=== PATIENT | female | born 1995 | race African-American/Black ===

== ENCOUNTER 2022-06-01 12:45 | Inpatient (IN) ==
[2022-06-01] MEDS ORDERED: OXYTOCIN 30 UNITS/500 ML BAG IV PRN ×2 (13:32→13:51)
[2022-06-01] MEDS ORDERED: LIDOCAINE 1% LOCAL 20 ML VIAL INFIL PRN (13:32)
[2022-06-01 14:16] LABS: Creatinine Urine Random 133.5 mg/dl; Protein Creatinine Ratio Urine 0.1 (0-0.2); Total Protein Urine Random 13.4 mg/dl (0-11.9)
--- NOTE | 2022-06-01 14:18 | History & Physical Report ---
Date of Service June 01, 2022 Assessment & Plan (1) Encounter for induction of labor: Plan: IUP at 40+ weeks for IOL because of post term cervical balloon placed successfully pitocin augmentation has been started epidural analgesia if or when requested anticipate vaginal Admission and Anticipated Discharge Date Admission Date: June 01, 2022 History of Present Illness Chief Complaint: induction of labor Primary Care Provider: GREG PCP at 40 weeks and 2 days confirmed via LMP. Here for induction of labor. Complications with this include rubella non-immune. Has been attending OB appointments regularly. Currently taking no medications. Contractions: none. Fluid or Blood loss: none Movement: active Labs - Blood type: O+ - Antibody screen: negative - H.5 - Hct: 34.1 - Plt: 309 - Rubella: equivocal - VDRL/RPR: nonreactive - Gonorrhea: negative - Chlamydia: negative - HIV: negative - HbSAg: negative - GBS: negative - Glucose tolerance x 2 Allergies Allergy/AdvReac Type Severity Reaction Status Date / Time No Known Allergies Allergy Verified 05/30/22 09:03 Home Medications Medication Instructions Recorded Confirmed Type prenat.vits,oliverio,xyy-sdjp-ryhcy 1 tab PO DAILY 11/01/21 06/01/22 History lactobacillus combination no.4 3 3,000 mmu cells PO DAILY 06/01/22 06/01/22 History billion cell capsule (Probiotic) omega-3 fatty acids-fish oil 684 1 cap PO DAILY 06/01/22 06/01/22 History mg-1,200 mg capsule,delayed release Patient History Medical History Asthma History of chicken pox Surgical History No history of previous surgery Family History Grandmother (Maternal) Diabetes Brother Asthma Denies family history of Ovarian cancer Breast cancer Colorectal cancer Social History (Updated 06/01/22 @ 12:57 by Jeni Burris RN) Smoking Status: Never smoker Hx Alcohol Use: No Hx Substance Use: No Preferred Language: Malay Communication Ability: Effective Hearing Ability: Normal Dental Director Required: No Beliefs That Will Affect Care: None marital status: Single marital status details: fob Dk Alarcon (38) [phone] Current Living Situation: Significant Other Current Living Situation Comment: Lives with FOB current occupational status: employed current occupation: [employer] Other Information That Helps Us Care for You: No Feels Safe at Home: Yes Safety Concerns: Feels Safe At This Time Gender Identity: Female Assistive Devices: None Review of Systems Denies fever, chills, sweats Denies shortness of breath, difficulty breathing, chest pain, palpitations, chest pressure. Denies breast pain. Denies dysuria. Denies headache or changes in vision. Physical Exam Physical Exam: General: Alert, oriented. No acute distress. Cardiac: Regular rate and rhythm, no murmurs/rubs/gallops. Respiratory: Clear to auscultation bilaterally a/p, no wheezes/rales/rhonchi. No increased work of breathing. Symmetrical chest rise. No respiratory distress. Abdomen: Gravid; cat 1 FHTs; Position: cephalic presentation Pelvic: Dilation 0.5cm; Effacement 50; Station -[address] Do Lower Extremities: No lower extremity edema or swelling. No deep calf pain. Lina's negative bilaterally vertex by bedside ultrasound Genitourinary: after establishing vertex presentation by ultrasound, a speculum was placed vaginally and the cervix visualized. a luna catheter was inserted into the cervical os. 40cc of sterile water was introduced into the balloon without difficulty. the catheter was then secured to her left thigh under traction. she tolerated the procedure well. Results & Data ([facility]) Vital Signs (Past 12 Hours) Vital Signs Temp Pulse Resp BP 06/01/22 13:31 83 20 125/82 06/01/22 12:55 37 C 93 H 20 175/94 H Code Status & VTE Plan VTE Prophylaxis Plan VTE Prophylaxis will be ordered: No Supervising Physician Co-Signing Physician Notes Resident Physician Supervision Note: I interviewed and examined the patient. Discussed with Dr. Dukes and agree with findings and plan as documented in the note. 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
[2022-06-01 14:34] LABS: Hematocrit (blood only) 32.8 % (34.1-44.9); Hemoglobin 10.9 g/dl (12.0-16.0); Mean Corpuscular Hemoglobin 30.1 pg (25.0-34.0); Mean Corpuscular Hgb Conc 33.2 g/dL (32.0-36.0); Mean Corpuscular Volume 90.6 fL (80.0-100.0); Platelet Count 255 K/uL (130-400); RDW Coefficient of Variation 14.3 % (11.5-14.5); RDW Standard Deviation 47.2 fL (36.4-46.3); Red Blood Count 3.62 M/uL (3.93-5.22); White Blood Count 10.38 K/ul (4.8-10.8)
[2022-06-01 14:37] LABS: Albumin Globulin Ratio 1.1 (0.9-2); BUN Creatinine Ratio 10.1 (10-20); Bilirubin,Total 0.4 mg/dl (0.2-1.0); Creatinine Clr Calc Pharmacy 133.4 ml/min; Est GFR (African American) 104.4 ml/min; Est GFR (Non-African American) 90.1 ml/min; Globulin 2.8 gm/dl (2.5-4.0); Total Protein 5.8 gm/dl (6.0-8.3)
[2022-06-01] MEDS: LACTATED RINGER'S 1,000 ML IV PRN ×3 (15:03→22:35)
[2022-06-01] MEDS ORDERED: BUTORPHANOL TARTRATE 1 MG/ML VIAL IV PRN (16:57)
[2022-06-01] MEDS ORDERED: fentaNYL citrate 100 MCG/2 ML VIAL ONE (20:41)
[2022-06-01] MEDS ORDERED: BUPIVACAINE 0.25% 30 ML VIAL ONE (20:41)
[2022-06-01] MEDS ORDERED: LIDOCAINE 2%/EPINEPHRINE 1:200,000 20 ML SDV ONE (20:41)
[2022-06-01] MEDS ORDERED: ePHEDrine sulfate 50 MG/ML AMP ONE ×2 (20:41→22:14)
[2022-06-01] MEDS ORDERED: SODIUM CHLORIDE 0.9% INJ 10 ML VIAL ONE (20:41)
[2022-06-01] MEDS ORDERED: fentaNYL 2MCG/ML ROPIVACAINE 1.25MG/ML 100 ML BAG EPI ONE (20:42)
[2022-06-01] MEDS ORDERED: NALOXONE HCL 1 MG in SODIUM CHLORIDE 0.9% 1000ML 1,000 ML IV PRN (22:09)
[2022-06-01] MEDS ORDERED: diphenhydrAMINE 50 MG/ML VIAL IV PRN (22:09)
[2022-06-01] MEDS ORDERED: ePHEDrine sulfate 50 MG/ML AMP IV PRN (22:09)
[2022-06-01] MEDS ORDERED: NALBUPHINE HCL INJ 10 MG/ML AMP IV PRN (22:09)
[2022-06-01] MEDS ORDERED: NALOXONE HCL 0.4 MG/1 ML VIAL/CARP IV PRN (22:09)
--- NOTE | 2022-06-01 22:09 | Anesthesiology Consultation ---
Date of Service June 01, 2022 Assessment & Plan ASA ASA2 Proposed Anesthesia Anesthesia Type: Labor Epidural Risk / Benefits Reviewed With: PT / POA / Parent / Guardian, Accepts Plan and Informed Consent Obtained History Height/Weight Height: 5 ft 10 in Weight: 115.847 kg Allergies Allergy/AdvReac Type Severity Reaction Status Date / Time No Known Allergies Allergy Verified 05/30/22 09:03 Medications Home Medications Medication Instructions Recorded Confirmed Last Taken prenat.vits,oliverio,joc-ukiq-xydpq 1 tab PO DAILY 11/01/21 06/01/22 06/01/22 10:00 lactobacillus combination no.4 3 3,000 mmu cells PO DAILY 06/01/22 06/01/22 06/01/22 10:00 billion cell capsule (Probiotic) omega-3 fatty acids-fish oil 684 1 cap PO DAILY 06/01/22 06/01/22 06/01/22 10:00 mg-1,200 mg capsule,delayed release Active Medications Generic Name Dose Route Start Last Admin Trade Name Freq PRN Reason Stop Dose Admin Butorphanol Tartrate 1 mg 06/01/22 16:57 06/01/22 17:13 Butorphanol Tartrate 1 Mg/Ml Vial IV 07/01/22 16:56 1 mg Q2H PRN Administration Pain Lactated Ringer's 1,000 mls @ 125 mls/hr 06/01/22 13:32 06/01/22 20:53 Lr IV 06/03/22 13:31 999 mls/hr .Q8H PRN Administration L&D Protocol Protocol Oxytocin 30 units in 500 mls @ 15 mls/hr 06/01/22 13:51 06/01/22 21:00 Pitocin IV 06/03/22 13:50 0.9 units/hr .Q24H PRN 15 mls/hr Labor Induction/Augmentation Titration Protocol 0.9 UNITS/HR Past Medical History Medical History Asthma History of chicken pox Exercise / Class Metabolic Activity II 4-5 Yardwork/Stairs/Walk up hill Past Family History Family History Grandmother (Maternal) Diabetes Brother Asthma Denies family history of Ovarian cancer Breast cancer Colorectal cancer Past Surgical History Surgical History No history of previous surgery Past Anesthesia History No Hx of Anesthesia Complications and No Family Hx of Anesthesia Complications History of PONV No Hx of PONV and No Hx of Motion Sickness Social History Smoking Status: Never smoker Hx Alcohol Use: No Hx Substance Use: No substance use type: does not use Review of Systems denies fever/cough/ colds/ chest pain/ SOB/ CHERRIE denies CHERRIE Physical Exam Vital Signs Last Vital Signs Temp 36.4 C L 06/01/22 19:00 Pulse 64 06/01/22 22:07 Resp 16 06/01/22 21:55 BP 95/55 L 06/01/22 22:07 Pulse Ox 98 06/01/22 22:04 ENMT Mouth: no TMJ abnormality and no dentition abnormality Thyromental Distance: > or= 3.5 Finger Breadths Mallampati Class: II Neck neck extension not limited Respiratory normal respiratory effort; no respiratory distress Auscultation: lungs clear to auscultation bilaterally Cardiovascular Rate/Rhythm: regular rate and regular rhythm Neurologic moves all extremities Psychiatric Orientation: alert and oriented x 3 Testing Laboratory Results 06/01/22 13:58 06/01/22 13:58 Blood Type O Positive 06/01/22 13:58 Antibody Screen NEGATIVE 06/01/22 13:58
[2022-06-01] MEDS: ONDANSETRON INJ 2 MG/ML 2 ML VIAL IV PRN (22:33)
[2022-06-02] MEDS: fentaNYL 2MCG/ML ROPIVACAINE 1.25MG/ML 100 ML BAG EPI PRN ×2 (03:33→09:15)
[2022-06-02] MEDS: LACTATED RINGER'S 1,000 ML IV PRN (06:17)
[2022-06-02] MEDS: ONDANSETRON INJ 2 MG/ML 2 ML VIAL IV PRN (09:14)
--- NOTE | 2022-06-02 09:52 | Labor Progress Brief Note ---
Date of Service June 02, 2022 Subjective Feeling some pressure Assessment & Plan (1) Encounter for induction of labor: Plan: 27 yo G1 at 40 3/7 wga presents for IOL VSS Fetus cat 1 Labor - complete, starting to feel pressure more consistently so will labor down for a little and start pushing GBS neg epidural in place Admission and Anticipated Discharge Date Admission Date: June 01, 2022 Physical Exam Genitourinary: Manual OB Exam: + cervical dilation 10 cm and + station + 1 OB Exam Monitor Tracing: + external FHT monitor used, + external uterine monitor used and + category I (145/mod/+accel/-decel) Results & Data ([facility]) Vital Signs (Past 12 Hours) Vital Signs Temp Pulse Resp BP Pulse Ox 06/02/22 09:47 86 128/70 06/02/22 09:25 18 06/02/22 09:25 98.4 F 18 06/02/22 09:44 78 100 06/02/22 09:39 84 100 06/02/22 09:34 84 98 06/02/22 09:32 73 119/61 06/02/22 09:29 71 99 06/02/22 09:24 80 98 06/02/22 09:19 93 H 117/61 97 06/02/22 09:14 113 H 94 06/02/22 09:09 117 H 97 06/02/22 09:04 108 H 96 06/02/22 09:03 104 H 126/76 06/02/22 08:59 91 H 99 06/02/22 08:54 85 98 06/02/22 08:49 99 H 96 06/02/22 08:48 90 126/76 06/02/22 08:44 84 98 06/02/22 08:39 91 H 99 06/02/22 08:34 77 97 06/02/22 08:32 77 124/70 06/02/22 08:29 79 99 06/02/22 07:10 18 06/02/22 07:10 98.4 F 18 06/02/22 08:15 16 06/02/22 08:15 98.8 F 16 06/02/22 08:24 77 98 06/02/22 08:19 78 98 06/02/22 08:17 73 120/64 06/02/22 08:14 79 98 06/02/22 08:09 80 96 06/02/22 08:04 86 96 06/02/22 08:03 79 123/67 06/02/22 07:59 103 H 97 06/02/22 07:54 97 H 96 06/02/22 07:52 95 H 94 06/02/22 07:49 83 96 06/02/22 07:47 79 109/64 06/02/22 07:44 79 96 06/02/22 07:39 80 96 06/02/22 07:34 82 97 06/02/22 07:32 83 110/62 06/02/22 07:29 78 96 06/02/22 07:30 80 94 06/02/22 07:24 88 97 06/02/22 07:19 88 96 06/02/22 07:17 83 99/57 L 06/02/22 07:14 89 97 06/02/22 07:09 83 96 06/02/22 07:04 91 H 97 06/02/22 07:02 95 H 109/58 L 06/02/22 06:59 85 95 06/02/22 06:54 84 96 06/02/22 06:49 75 96 06/02/22 06:48 80 112/62 06/02/22 06:44 78 96 06/02/22 06:39 77 97 06/02/22 06:34 80 97 06/02/22 06:32 71 102/57 L 06/02/22 06:29 78 97 06/02/22 06:24 75 97 06/02/22 06:19 84 99 06/02/22 06:17 75 101/55 L 06/02/22 06:14 78 98 06/02/22 06:09 92 H 99 06/02/22 06:04 97 06/02/22 06:04 72 06/02/22 06:04 61 110/62 06/02/22 05:59 72 97 06/02/22 05:54 69 98 06/02/22 05:49 68 98 06/02/22 05:48 72 86/51 L 06/02/22 05:44 78 98 06/02/22 05:39 76 99 06/02/22 05:34 66 100 06/02/22 05:33 74 97/55 L 06/02/22 05:29 78 100 06/02/22 05:00 18 06/02/22 05:00 98.1 F 18 06/02/22 05:24 72 100 06/02/22 05:19 100 06/02/22 05:19 82 06/02/22 05:19 88 105/51 L 06/02/22 05:14 92 H 99 06/02/22 05:09 63 99 06/02/22 05:04 65 100 06/02/22 05:02 64 105/56 L 06/02/22 04:59 74 98 06/02/22 04:54 82 97 06/02/22 04:49 99 06/02/22 04:49 70 06/02/22 04:49 65 104/58 L 06/02/22 04:44 65 98 06/02/22 04:39 64 97 06/02/22 04:34 66 98 06/02/22 04:32 62 107/61 06/02/22 04:29 63 97 06/02/22 04:24 66 97 06/02/22 04:19 65 98 06/02/22 04:17 63 114/66 06/02/22 04:14 62 98 06/02/22 04:09 69 99 06/02/22 04:04 99 06/02/22 04:04 66 06/02/22 04:04 68 109/69 06/02/22 03:59 66 99 06/02/22 03:54 66 98 06/02/22 03:49 72 98 06/02/22 03:47 82 121/65 06/02/22 03:44 107 H 98 06/02/22 03:39 74 100 06/02/22 03:34 75 100 06/02/22 03:32 67 118/76 06/02/22 03:29 83 99 06/02/22 03:24 60 100 06/02/22 03:19 61 100/56 L 100 06/02/22 03:17 55 L 87/48 L 06/02/22 03:14 60 100 06/02/22 03:09 60 100 06/02/22 03:04 62 99 06/02/22 03:02 16 06/02/22 03:02 64 16 95/53 L 06/02/22 02:59 64 98 06/02/22 02:54 78 96 06/02/22 02:49 69 97 06/02/22 02:47 57 L 93/51 L 06/02/22 02:44 70 97 06/02/22 02:39 79 98 06/02/22 02:34 98.4 F 89 18 96 06/02/22 02:31 73 94 06/02/22 02:32 73 101/53 L 06/02/22 02:29 76 95 06/02/22 02:24 75 95 06/02/22 02:19 76 96 06/02/22 02:17 71 100/52 L 06/02/22 02:14 72 96 06/02/22 02:09 71 95 06/02/22 02:04 96 06/02/22 02:04 70 06/02/22 02:04 66 99/51 L 06/02/22 01:59 69 97 06/02/22 01:54 62 97 06/02/22 01:49 67 97 06/02/22 01:47 67 107/55 L 06/02/22 01:44 75 98 06/02/22 01:39 63 97 06/02/22 01:34 80 99 06/02/22 01:23 18 06/02/22 01:23 98.1 F 18 06/02/22 01:32 69 104/55 L 06/02/22 01:29 66 100 06/02/22 01:24 67 100 06/02/22 01:21 83 110/53 L 06/02/22 01:19 84 100 06/02/22 01:14 73 100 06/02/22 01:09 73 100 06/02/22 01:04 57 L 99 06/02/22 01:03 59 L 117/55 L 06/02/22 00:41 16 06/02/22 00:41 16 06/02/22 00:59 63 100 06/02/22 00:54 58 L 100 06/02/22 00:49 67 100 06/02/22 00:47 59 L 127/60 06/02/22 00:44 57 L 100 06/02/22 00:39 59 L 100 06/02/22 00:34 60 100 06/02/22 00:32 60 129/60 06/02/22 00:29 61 100 06/02/22 00:24 61 100 06/02/22 00:19 61 100 06/02/22 00:17 62 123/60 06/02/22 00:14 64 100 06/02/22 00:09 59 L 99 06/02/22 00:00 16 06/02/22 00:00 98.1 F 16 06/02/22 00:04 67 99 06/02/22 00:03 57 L 123/58 L 06/01/22 23:59 61 96 06/01/22 23:54 72 98 06/01/22 23:49 68 94 06/01/22 23:45 80 90 06/01/22 23:44 82 99 06/01/22 23:42 62 108/58 L 06/01/22 23:39 60 97 06/01/22 23:38 59 L 117/57 L 06/01/22 23:34 61 97 06/01/22 23:33 67 117/58 L 06/01/22 23:31 60 118/58 L 06/01/22 23:29 67 97 06/01/22 23:26 67 112/59 L 06/01/22 23:24 64 96 06/01/22 23:22 64 114/56 L 06/01/22 22:50 16 06/01/22 22:50 16 06/01/22 23:19 75 96 06/01/22 23:18 61 119/58 L 06/01/22 22:20 22 06/01/22 22:20 22 06/01/22 23:14 66 96 06/01/22 22:05 18 06/01/22 22:05 18 06/01/22 23:13 60 120/59 L 06/01/22 23:09 60 96 06/01/22 23:06 61 111/61 94 06/01/22 23:04 72 108/58 L 97 06/01/22 23:02 63 109/57 L 06/01/22 22:59 77 96 06/01/22 22:58 73 117/63 94 06/01/22 22:54 74 98 06/01/22 22:51 77 123/59 L 06/01/22 22:49 76 117/63 99 06/01/22 22:44 92 H 96 06/01/22 22:45 88 133/65 06/01/22 22:43 94 06/01/22 22:43 85 06/01/22 22:43 82 124/59 L 06/01/22 22:41 86 123/59 L 06/01/22 22:39 70 139/62 99 06/01/22 22:37 98 H 155/71 H 06/01/22 22:35 96 H 16 97/56 L 06/01/22 22:34 107 H 98 06/01/22 22:32 123 H 110/58 L 06/01/22 22:29 112 H 100 06/01/22 22:26 91 H 149/86 H 06/01/22 22:24 105 H 97 06/01/22 22:23 93 H 116/57 L 06/01/22 22:21 106 H 139/63 06/01/22 22:19 120 H 99 06/01/22 22:14 70 100 06/01/22 22:13 99 H 79/47 L 06/01/22 22:11 62 87/50 L 06/01/22 22:12 69 86/47 L 06/01/22 22:09 72 100 06/01/22 21:55 16 06/01/22 21:55 16 06/01/22 22:07 64 95/55 L 06/01/22 22:04 69 98 06/01/22 21:59 79 111/63 99 06/01/22 21:56 78 118/68 06/01/22 21:54 99 06/01/22 21:54 76 06/01/22 21:54 66 117/71 06/01/22 21:52 68 115/75 06/01/22 21:50 67 18 116/72 Coding Level of Care Code None Diagnoses Encounter for induction of labor Z34.90
[2022-06-02] MEDS ORDERED: ACETAMINOPHEN 325 MG TAB PO PRN (10:39)
[2022-06-02] MEDS ORDERED: bisacodyL 10 MG SUPP PR PRN (10:39)
[2022-06-02] MEDS ORDERED: DIPHTHERIA/TETANUS/PERTUSSIS 0.5 ML SYR/VIAL IM ONE (10:39)
[2022-06-02] MEDS ORDERED: OXYTOCIN 30 UNITS/500 ML BAG IV PRN (10:39)
[2022-06-02] MEDS ORDERED: BENZOCAINE 20% AER SPR 82.5 GM CAN EXT PRN (10:39)
[2022-06-02] MEDS ORDERED: OXYTOCIN 10 UNITS/ML 10ML VIAL IM ONE (10:39)
[2022-06-02] MEDS ORDERED: HYDROCORTISONE ACETATE 25 MG SUPP PR PRN (10:39)
--- NOTE | 2022-06-02 10:45 | Delivery Summary ---
Vaginal Delivery Summary Date of Service June 02, 2022 Vaginal Delivery Summary and 2nd Degree LAC PREOPERATIVE DIAGNOSIS: 1. Single intrauterine at 40 3/7 wga 2. Induction of labor 3. Rubella non-immune POSTOPERATIVE DIAGNOSIS: 1. Single intrauterine at 40 3/7 wga 2. Induction of labor 3. Rubella non-immune 4. Delivered PROCEDURE: 1. Normal spontaneous vaginal delivery. SURGEON: Miracle Xiong MD ANESTHESIA: Epidural. ESTIMATED BLOOD LOSS: 300 mL FLUIDS: Continuous LR. URINE OUTPUT: None. COMPLICATIONS: None. CONDITION: Stable. INDICATIONS: 27 yo G1 at 40 3/7 wga presented for induction of labor yesterday. Induction was begun with luna balloon and pitocin. Following luna bulb expulsion, pitocin was continued to be titrated. She had SROM after attempts at AROM were difficult due to station. She continued to progress to complete and desired to push. FINDINGS: A viable female infant, weight pending with Apgars of 9 and 10 at 1 and 5 minutes respectively. SPECIMEN: Cord blood OPERATIVE REPORT: The patient progressed to 10 cm, 100% effaced and +2 station, pushed over intact perineum with anesthesia to deliver a viable female , weight and Apgars as above. Head of delivered in GAVIN position. No nuchal cord was present. Body and shoulders were delivered without difficulty. was delivered to maternal abdomen and nursing staff. Delayed cord clamping was performed for 60 seconds. Cord was clamped and cut. Cord blood was obtained. Placenta delivered spontaneously intact with 3-vessel cord. IV oxytocin and fundal massage were given however IV was noted to have infiltrated so IV pitocin was stopped. 10 units of IM pit was then administered and good hemostasis was noted. Vagina, cervix, perineum, and placenta were inspected. A second degree laceration was noted and repaired in the usual fashion with 3-0 vicryl. Sponge and needle counts correct x2. No sponges were left behind. Mother and stable in immediate period. [facility] V[facility] Delivery Charge Vaginal Delivery Codes: 40296 global code for the antepartum, delivery, and post- Delivery Type Details: and 2nd Degree LAC
[2022-06-02] MEDS ORDERED: PROMETHAZINE HCL 12.5 MG in SODIUM CHLORIDE 0.9% 50 ML IV STA (11:14)
--- NOTE | 2022-06-02 12:50 | Anesthesia Procedure Note ---
Date of Service June 02, 2022 Anesthesia Post Epidural Note Vital Signs Vital Signs: Temp Pulse Resp BP Pulse Ox 98.4 F 81 18 161/96 H 93 06/02/22 09:25 06/02/22 12:46 06/02/22 09:25 06/02/22 12:46 06/02/22 10:47 Pain Intensity Lower Abdomen: Pain Intensity: 3 Notes Mental Status: alert / awake / arousable and participated in evaluation Nausea / Vomiting: adequately controlled Pain: adequately controlled Airway Patency, RR, SpO2: stable & adequate BP & HR: stable & adequate Hydration State: stable & adequate Neuraxial Anesthesia: was administered and sensory block is resolving Anesthetic Complications: no major complications apparent and Pt Satisfied with anesthetic care Epidural: Removed without complications and With tip intact
[2022-06-02] MEDS: IBUPROFEN 600 MG TAB PO PRN ×2 (13:04→19:51)
[2022-06-02 14:27] LABS: Hematocrit (blood only) 33.5 % (34.1-44.9); Mean Corpuscular Hemoglobin 30.3 pg (25.0-34.0); Mean Corpuscular Hgb Conc 32.8 g/dL (32.0-36.0); Mean Corpuscular Volume 92.3 fL (80.0-100.0); Platelet Count 236 K/uL (130-400); RDW Coefficient of Variation 14.5 % (11.5-14.5); RDW Standard Deviation 48.8 fL (36.4-46.3); Red Blood Count 3.63 M/uL (3.93-5.22); White Blood Count 20.44 K/ul (4.8-10.8)
[2022-06-02 14:46] LABS: Albumin Globulin Ratio 1.1 (0.9-2); Albumin Level 2.9 gm/dl (3.4-5.0); BUN Creatinine Ratio 9.9 (10-20); Bilirubin,Total 0.7 mg/dl (0.2-1.0); Calcium 8.2 mg/dl (8.5-10.1); Creatinine Clr Calc Pharmacy 146.6 ml/min; Est GFR (Non-African American) 100.9 ml/min; Globulin 2.7 gm/dl (2.5-4.0); Potassium 3.9 mmol/L (3.5-5.1); Total Protein 5.6 gm/dl (6.0-8.3)
[2022-06-02] MEDS ORDERED: DOCUSATE SODIUM 100 MG CAP PO ONE (19:49)
[2022-06-02] MEDS: DOCUSATE SODIUM 100 MG CAP PO SCH (19:51)
[2022-06-03] MEDS: IBUPROFEN 600 MG TAB PO PRN ×2 (06:01→16:28)
--- NOTE | 2022-06-03 07:08 | Obstetrical Progress Note ---
Date of Service June 03, 2022 Assessment & Plan (1) Encounter for care and examination after delivery: 27 yo PP1 from , doing well -Meeting all pp milestones -O+/rubella equiv/, needs mmr -f/u 6 weeks for appt, continue rout pp care Subjective Ambulation: ambulating normally Voiding: no voiding problems Passing Gas:: Yes Diet Tolerance:: regular diet Lochia:: Moderate Feeding Type:: breast feeding Pain well managed with medication Review of Systems Denies fevers, chills, n/v, MEDRANO, CP, SOB Physical Exam Constitutional WD/WN, vitals as above no acute distress Respiratory normal respiratory effort, lungs clear to auscultation Cardiovascular RRR, no murmur, no edema Gastrointestinal (Abdomen) Percussion/Palpation: abdomen soft; abdomen nontender fundus firm at umbilicus and NT Musculoskeletal BLE symmetric, nonerythematous, nontender Results & Data ([facility]) Vital Signs (Past 12 Hours) Vital Signs Temp Pulse Resp BP Pulse Ox O2 Del Method 06/03/22 03:35 97.7 F 71 18 108/75 Room Air 06/02/22 23:15 98.1 F 77 18 127/88 98 Room Air 06/02/22 19:35 97.7 F 76 16 131/85 96 Room Air
[2022-06-03] MEDS: PRENATAL VITAMIN 1 TAB PO SCH (08:30)
[2022-06-03] MEDS: FERROUS SULFATE 325 MG TAB PO SCH (08:30)
[2022-06-03] MEDS: DOCUSATE SODIUM 100 MG CAP PO SCH ×2 (08:31→21:34)
[2022-06-03] MEDS ORDERED: bisacodyL 5 MG TABEC PO SCH (20:00)
[2022-06-04] MEDS: IBUPROFEN 600 MG TAB PO PRN (03:52)
--- NOTE | 2022-06-04 04:57 | Obstetrical Progress Note ---
Date of Service June 04, 2022 Assessment & Plan (1) care following vaginal delivery: (2) Vaginal delivery: Plan - Overall, feeling well and eating well today - feeding going well without concern - Urinating and stooling appropriately - Ambulating well within room - Pain controlled w/ Ibuprofen - Hgb 11 on 06/02 - Routine PP care progressing well - Anticipate discharge today, patient requesting. - Recommending f/u outpatient in 6 weeks Admission and Anticipated Discharge Date Admission Date: June 01, 2022 Supervising Physician Co-Signing Physician Notes Resident Physician Supervision Note: I interviewed and examined the patient. Discussed with Dr. Price and agree with findings and plan as documented in the note. Any exceptions or clarifications are listed here: PP2 s/p , doing well. VSS, exam benign and wnl. Stable for d/c home Documented By: Miracle Xiong MD Subjective Patient is a 27 y/o female who is PPD #2 following delivery of a female infant at 40w3d. She reports feeling well overall this morning and is requesting to go home. - Ambulation - well throughout room - Voiding/[place] - independent voids, no dysuria or pressure - Gas/Stool - passing gas and moving bowels regularly w/o concern - Diet - regular, no nausea or emesis - Lochia - diminishing, light amount - Infant Feeding Type - breast feeding w/o concern - Pain Level - 3/10, controlled with Ibuprofen Review of Systems - Denies fever, chills, sweats - Denies shortness of breath, difficulty breathing, chest pain, palpitations, chest pressure. - Denies breast pain. - Denies dysuria. - Denies headache or changes in vision. Physical Exam Physical Exam: General: Alert, oriented. No acute distress. Cardiac: RRR, normal S1/S2, no murmurs/rubs/gallops. Respiratory: Non-labored, CTAB, no wheezes/rales/rhonchi. Symmetric chest rise. Abdomen: Soft, nontender, nondistended. Bowel sounds present. Uterus: Uterine fundus firm, palpable below umbilicus (patient sitting upright upon examination) Lower Extremities: No lower extremity edema or swelling. No deep calf pain. Lina's negative bilaterally. Results & Data ([facility]) Vital Signs (Past 12 Hours) Vital Signs Temp Pulse Resp BP 12/11/22 23:30 36.6 C 86 18 124/79 06/03/22 19:30 36.7 C 86 18 142/85 H Resident Activity Tracking Resident Involvement: Resident Care Provided Care Provided: OB Delivery
[2022-06-04] MEDS: DOCUSATE SODIUM 100 MG CAP PO SCH (07:43)
[2022-06-04] MEDS: PRENATAL VITAMIN 1 TAB PO SCH (07:43)
[2022-06-04] MEDS: FERROUS SULFATE 325 MG TAB PO SCH (07:43)
[2022-06-04] MEDS ORDERED: MEASLES, MUMPS & RUBELLA VIRUS VIAL SQ ONE (10:16)
== END 2022-06-04 11:00 | disposition home or self-care (01) | DRG 807 ==
LOC: 4S1 12:45 → 4E2 06-02 14:30